=== PATIENT | female | born 1950 | race Caucasian/White ===

== ENCOUNTER → 2016-05-12 | Outpatient (CLI) | payer BC ==
[2016-04-07 08:11] VITALS: BP 140/67
[2016-05-12 09:18] LABS: BASOPHILS # (AUTO) 0.1 X10^3/uL (0.0-0.1); BASOPHILS % (AUTO) 1.4 % (0.2-1.0); EOSINOPHILS # (AUTO) 1.1 x10^3/uL (0.0-0.2); EOSINOPHILS % (AUTO) 13.7 % (0.9-2.9); LYMPHOCYTES # (AUTO) 3.1 X10^3/uL (1.3-2.9); LYMPHOCYTES % (AUTO) 39.5 % (21.0-51.0); MEAN CORPUSCULAR HEMOGLOBIN 31.6 pg (27.0-34.0); MEAN CORPUSCULAR HGB CONC 33.2 g/dL (33.0-35.0); MEAN CORPUSCULAR VOLUME 95.2 fL (80.0-100.0); MEAN PLATELET VOLUME 8.2 fL (7.4-11.0); MONOCYTES # (AUTO) 0.4 x10^3/uL (0.3-0.8); MONOCYTES % (AUTO) 5.4 % (0.0-13.0); NEUTROPHILS # (AUTO) 3.2 x10^3/uL (2.2-4.8); PLATELET COUNT 279 X10^3/uL (150.0-450.0); RED BLOOD COUNT 4.42 X10^6/uL (3.5-5.4); RED CELL DISTRIBUTION WIDTH 14.9 % (11.6-16.5); WHITE BLOOD COUNT 7.9 X10^3/uL (3.6-10.0)
[2016-05-12 09:54] LABS: ALANINE AMINOTRANSFERASE 57 Units/L (12-78); ALBUMIN 3.2 g/dL (3.4-5.0); ALKALINE PHOSPHATASE 139 Units/L (46-116); ASPARTATE AMINO TRANSFERASE 33 Units/L (15-37); BILIRUBIN,DIRECT 0.07 mg/dL (0-0.2); BLOOD UREA NITROGEN 8 mg/dL (7-18); CALCIUM 8.9 mg/dL (8.5-10.1); CARBON DIOXIDE 20.4 mmol/L (21-32); CHLORIDE 110 mmol/L (98-107); CHOL/HDL RATIO 3.5 (0.0-5.0); CHOLESTEROL 189 mg/dL (0-200); CREATININE 0.76 mg/dL (0.55-1.02); GLUCOSE 93 mg/dL (65-99); HDL CHOLESTEROL 54 mg/dL (40-60); SODIUM 144 mmol/L (136-145); TOTAL PROTEIN 7.4 g/dL (6.4-8.2); TRIGLYCERIDES 75 mg/dL (0-150); eGFR BLACK RACES > 60 (>60); eGFR NON BLACK RACES > 60 (>60)
== END ==
LOC: LAB 08:45
PROVIDERS: ATTEND Physician Assistant
DX: I10 Essential (primary) hypertension (principal); Z82.49 Family history of ischemic heart disease and other diseases of the circulatory system; Z79.01 Long term (current) use of anticoagulants
CPT/HCPCS: 36415; 80048; 80061; 80076; 85025

== ENCOUNTER 2016-05-14 16:01 | Observation (INO) | payer BC ==
--- NOTE | 2016-05-14 16:20 | DR.CP ---
HPI - Time Seen Time seen: 16:10 - PCP Primary Care Physician: - HPI Comment HPI Comment: PATIENT DEVELOP INTERMITTENT PRECORDIAL PRESSURE YESTERDAY THAT IS PERSISTENT TODAY. PAIN RADIATES TO THE BACK AND IS ASSOCIATED WITH SOB AND WEAKNESS.PATIENT DID NOT TAKE ANY MEDICATION FOR THE PAIN. SHE IS TO BE SCHEDULE FOR CARDIAC CATH NEXT WEEK BY DR. BONNER. SHE RECENTLY WAS TREATED FOR PNEUMONIA. SHE HAVE HISTORY OF HYPERTENTION AND HYPERLIPIDEMIA. ALSO STRONG FAMILY HISTORY OF CAD AND ND. - Complaint Chief Complaint Doctor Comments: CHEST PAIN TIMES 2 DAYS. Chief Complaint:: PATIENT STATED THAT SHE HAS BEEN HAVING CHEST PAIN FOR THE LAST 2 DAYS. SHE STATED THAT SHE WAS TO HAVE A HEART CATH THIS WEEK BUT IT WAS CHANGED TO NEXT WEEK. SHE SEES DR. MIRAMONTES. - Reviewed Nurses Notes Review: Yes - Source History Provided: Patient - Mode of Arrival Mode of Arrival: Ambulatory - Timing Onset of Chief Complaint: 05/12/16 Came on: Suddenly Pain: Present Now - Duration Duration: Intermittent Duration: Days - Location Location of Chest Pain: Left, Chest Chest Pain Radiation Location: Back - Context Onset: At rest, With light exertion Cardiac Risk Factors: Family History, Hyperlipidemia, HTN PE Risk Factors: None History of: Aspirin in last 24 hours Prehospital Care: ASA - Quality Quality: Pressure like - Severity Severity: Moderate - Modifying Factors Worsens: Nothing Impoves: Nothing - Associated Signs and Symptoms Associated Signs and Symptoms: Shortness of Breath, Palpitations (HISTORY A FIB) PMH - PMH Past Medical History: Yes Past Medical History: Dyslipidemia, GERD, Headaches, Migraines Past Surgical History: Yes Surgical History: Cholecystectomy, Hysterectomy - Family History History of Family Medical Conditions: Yes Family Medical History: Diabetes Mellitus, [place], Coronary Artery Disease, Heart Failure, Sudden Cardiac , Hypertension - Social History Does patient currently use any type of tobacco product: No Have you used tobacco products in the last 12 months: No Type of Tobacco Use: None Does any household member use tobacco: No Alcohol Use: None Do you use any recreational Drugs:: No Lives With: Family Lives Where: Home - infectious screening In the last 2 months have you had wt loss of >10#?: NO Have you had fever, night sweats or hemotysis?: No Have you traveled outside the country in the last 6 months?: No Isolation: Standard ROS - Review of Systems Constitutional: Weakness, Fatigue. negative: Chills, Diaphoresis, Fever, Loss of Appetite Eyes: No Symptoms Reported. negative: Eye Pain, Discharge ENTM: No Symptoms Reported. negative: Ear Pain, Nose Discharge, Nose Congestion , Throat Pain Respiratoy: Short of Breath. negative: Productive Cough, Non-Productive Cough, Wheezing, Hemoptysis Cardiovascular: Chest Pain, Palpitations. negative: Edema, Syncope Gastrointestinal/Abdominal: No Symptoms Reported. negative: Abdominal Pain, Diarrhea, Nausea, Vomiting Genitourinary: No Symptoms Reported. negative: Dysuria, Frequency, Hematuria Neurological: Weakness. negative: Headache, Dizziness Musculoskeletal: No Symptoms Reported Integumentary: No Symptoms Reported Hematologic/Lymphatic: Easy Bleeding, Easy Bruising Endocrine: No Symptoms Reported All Other Systems: Reviewed and Negative PE - Vitals Vitals: Temperature 97.3 F Pulse Rate 115 Respiratory Rate 20 Blood Pressure [Right Arm] 140/67 Blood Pressure [Left Arm] 140/73 Blood Pressure 138/84 O2 Sat by Pulse Oximetry 97 - General Limitations: No Limitations General Appearance: Alert - Head Head Exam: Normal Inspection - Eyes Eye exam: Normal Appearance - ENT ENT Exam: Normal Oropharynx, Normal External Ear Exam, Mucous Membranes Moist, TM's Normal Bilaterally - Chest Chest Inspection: Symmetric Chest Wall Rise. negative: Tenderness - Respiratory Respiratory Exam: Normal Lung Sounds Bilat. negative: Chest Wall Tenderness, Respiratory Distress Respiratory Exam: Bilateral Clear to Auscultation - Cardiovascular Cardiovascular Exam: Regular Rate, Normal Rhythm, Normal Heart Sounds Pulse: Normal Edema: Normal - Abdominal Exam Abdominal Exam: Normal Bowel Sounds, Soft. negative: Tenderness - Extremities Extremities Exam: Normal Inspection. negative: Tenderness, Edema - Back Back Exam: Normal Inspection - Neurologic Neurological Exam: Alert, Oriented X3, CN II-XII Intact, Normal Gait, Motor Sensory Deficit, Reflexes Normal - Psychiatric Psychiatric Exam: Anxious - Skin Skin Exam: Normal Color MDM - Additional Information Additional Information Obtained From: Family - Differential Diagnosis Differential Diagnosis: Angina, Chest Wall Pain, Costochondritis, Esophageal Reflux/Spasm, Gastritis, Myocardial Infarction, Pericarditis, Pleuritis, Pancreatitis, Pneumonia, Pneumothorax, Pulmonary Embolus Course - Treatment Treatment: ASA PO IN ED. - Consultation Consultation Comments: DISCUSS PATIENT WITH [employer] CAPTAIN. AFTER PATIENT RULE OUT FOR ND, SHE IS TO CALL THEIR OFFICE FOR FOLLOW UP. ALSO DISCUSS PATIENT WITH DR. LAU. HE WILL ADMIT PATIENT. - Education/Counseling Education/Counseling: Patient, Family, Education Educated On: Diagnosis ROR - Labs Reviewed Laboratory Results Reviewed?: Yes Result Diagrams: 05/14/16 16:44 05/14/16 16:44 Laboratory: WBC 9.8 X10^3/uL (3.6-10.0) 05/14/16 16:44 RBC 4.28 X10^6/uL (3.5-5.4) 05/14/16 16:44 Hgb 13.6 g/dL (12.0-16.0) 05/14/16 16:44 Hct 40.6 % (36.0-47.0) 05/14/16 16:44 MCV 94.8 fL (80.0-100.0) 05/14/16 16:44 MCH 31.7 pg (27.0-34.0) 05/14/16 16:44 MCHC 33.4 g/dL (33.0-35.0) 05/14/16 16:44 RDW 15.0 % (11.6-16.5) 05/14/16 16:44 Plt Count 285 X10^3/uL (150.0-450.0) 05/14/16 16:44 MPV 8.1 fL (7.4-11.0) 05/14/16 16:44 Neut % 50.7 % (42.0-75.0) 05/14/16 16:44 Lymph % 30.3 % (21.0-51.0) 05/14/16 16:44 [place] % 6.0 % (0.0-13.0) 05/14/16 16:44 Eos % 12.0 % (0.9-2.9) H 05/14/16 16:44 Baso % 1.0 % (0.2-1.0) 05/14/16 16:44 Neut # 5.0 x10^3/uL (2.2-4.8) H 05/14/16 16:44 Lymph # 3.0 X10^3/uL (1.3-2.9) H 05/14/16 16:44 [place] # 0.6 x10^3/uL (0.3-0.8) 05/14/16 16:44 Eos # 1.2 x10^3/uL (0.0-0.2) H 05/14/16 16:44 Baso # 0.1 X10^3/uL (0.0-0.1) 05/14/16 16:44 Absolute Nucleated RBC 0.0 /100WBC 05/14/16 16:44 Sodium 143 mmol/L (136-145) 05/14/16 16:44 Corrected Sodium 143 mmol/L (136-145) 05/14/16 16:44 Potassium 3.4 mmol/L (3.5-5.1) L 05/14/16 16:44 Chloride 109 mmol/L (98-107) H 05/14/16 16:44 Carbon Dioxide 22.6 mmol/L (21-32) 05/14/16 16:44 BUN 9 mg/dL (7-18) 05/14/16 16:44 Creatinine 0.76 mg/dL (0.55-1.02) 05/14/16 16:44 Est GFR (MDRD) Af Amer > 60 (>60) 05/14/16 16:44 Est GFR (MDRD) Non-Af > 60 (>60) 05/14/16 16:44 Glucose 112 mg/dL (65-99) H 05/14/16 16:44 Calcium 9.1 mg/dL (8.5-10.1) 05/14/16 16:44 Corrected Calcium 9.7 mg/dL (8.5-10.1) 05/14/16 16:44 Total Bilirubin 0.20 mg/dL (0.2-1.0) 05/14/16 16:44 AST 24 Units/L (15-37) 05/14/16 16:44 ALT 42 Units/L (12-78) 05/14/16 16:44 Alkaline Phosphatase 122 Units/L (46-116) H 05/14/16 16:44 Creatine Kinase 23 Units/L (26-192) L 05/14/16 23:10 CK-MB (CK-2) < 1.0 ng/mL (0-4.0) 05/14/16 23:10 CK/CKMB % Calc 4.4 % (<4) 05/14/16 23:10 Troponin I 0.02 ng/mL (0-1.5) 05/14/16 23:10 B-Natriuretic Peptide 56.0 pg/mL (0-79) 05/14/16 16:44 Total Protein 7.2 g/dL (6.4-8.2) 05/14/16 16:44 Albumin 3.3 g/dL (3.4-5.0) L 05/14/16 16:44 Globulin 3.9 g/dL (2.5-4.5) 05/14/16 16:44 Albumin/Globulin Ratio 0.8 Ratio (1.1-2.1) L 05/14/16 16:44 - XRAY XRAY Interpreted by: Radiologist XRAY Findings: REPORT DISCUSS WITH PATIENT AND HER FAMILY. - EKG Rhythm: ST (EKG NOTED) - Diagnosis Discharge Problem: Chest pain Qualifiers: Chest pain type: precordial pain Qualified Code(s): R07.2 - Precordial pain - Discharge Plan Disposition: ADMITTED INPATIENT Condition: Stable - Follow ups/Referrals - Instructions
[2016-05-14] MEDS ORDERED: ASPIRIN 81 MG CHEWTAB PO ONE (16:21)
[2016-05-14] MEDS ORDERED: ASPIRIN 81 MG CHEWTAB ONE (16:28)
--- NOTE | 2016-05-14 16:42 | RAD ---
HISTORY: Chest pain Study: Single view of the chest Comparison: April 07, 2016 Findings: The trachea is midline. The cardiac silhouette is unremarkable. The lungs are clear without focal infiltrate or effusion. The aortic knob is partially calcified. IMPRESSION: 1. No acute cardiopulmonary disease. Reported By:
[2016-05-14 16:55] LABS: BASOPHILS # (AUTO) 0.1 X10^3/uL (0.0-0.1); EOSINOPHILS # (AUTO) 1.2 x10^3/uL (0.0-0.2); HEMATOCRIT 40.6 % (36.0-47.0); HEMOGLOBIN 13.6 g/dL (12.0-16.0); LYMPHOCYTES % (AUTO) 30.3 % (21.0-51.0); MEAN CORPUSCULAR HEMOGLOBIN 31.7 pg (27.0-34.0); MEAN CORPUSCULAR HGB CONC 33.4 g/dL (33.0-35.0); MEAN CORPUSCULAR VOLUME 94.8 fL (80.0-100.0); MEAN PLATELET VOLUME 8.1 fL (7.4-11.0); MONOCYTES # (AUTO) 0.6 x10^3/uL (0.3-0.8); NEUTROPHILS % (AUTO) 50.7 % (42.0-75.0); PLATELET COUNT 285 X10^3/uL (150.0-450.0); RED BLOOD COUNT 4.28 X10^6/uL (3.5-5.4); WHITE BLOOD COUNT 9.8 X10^3/uL (3.6-10.0)
[2016-05-14 17:12] LABS: BLOOD UREA NITROGEN 9 mg/dL (7-18); CALCIUM 9.1 mg/dL (8.5-10.1); CARBON DIOXIDE 22.6 mmol/L (21-32); CHLORIDE 109 mmol/L (98-107); COR NA(FOR HYPERGLY) 143 mmol/L (136-145); CREATININE 0.76 mg/dL (0.55-1.02); GLUCOSE 112 mg/dL (65-99); SODIUM 143 mmol/L (136-145); TROPONIN I 0.03 ng/mL (0-1.5); eGFR BLACK RACES > 60 (>60); eGFR NON BLACK RACES > 60 (>60)
[2016-05-14 17:16] LABS: ALANINE AMINOTRANSFERASE 42 Units/L (12-78); ALBUMIN 3.3 g/dL (3.4-5.0); ALKALINE PHOSPHATASE 122 Units/L (46-116); ASPARTATE AMINO TRANSFERASE 24 Units/L (15-37); COR CA(FOR HYPOALB) 9.7 mg/dL (8.5-10.1); CREATINE KINASE 20 Units/L (26-192); CREATINE KINASE MB < 1.0 ng/mL (0-4.0); TOTAL PROTEIN 7.2 g/dL (6.4-8.2)
[2016-05-14] MEDS ORDERED: NORCO 10/325 TAB PO PRN (20:59)
[2016-05-14] MEDS ORDERED: ANTIVERT TAB 25 MG PO PRN (20:59)
[2016-05-14] MEDS: TOPAMAX TAB 100 MG PO SCH (21:00)
[2016-05-14] MEDS: NS 1000 ML 1,000 ML IV SCH (21:00)
[2016-05-14] MEDS: ZYRTEC TAB 10 MG PO SCH (21:00)
[2016-05-14 22:09] VITALS: BMI 26.7
[2016-05-14 23:46] LABS: CKMB % 4.4 % (<4); CREATINE KINASE 23 Units/L (26-192); CREATINE KINASE MB < 1.0 ng/mL (0-4.0); TROPONIN I 0.02 ng/mL (0-1.5)
[2016-05-15 05:39] LABS: ALANINE AMINOTRANSFERASE 32 Units/L (12-78); ALBUMIN 2.9 g/dL (3.4-5.0); ALKALINE PHOSPHATASE 104 Units/L (46-116); ASPARTATE AMINO TRANSFERASE 22 Units/L (15-37); BLOOD UREA NITROGEN 8 mg/dL (7-18); CALCIUM 8.4 mg/dL (8.5-10.1); CARBON DIOXIDE 21.6 mmol/L (21-32); CHLORIDE 111 mmol/L (98-107); CHOL/HDL RATIO 3.8 (0.0-5.0); CHOLESTEROL 177 mg/dL (0-200); COR CA(FOR HYPOALB) 9.3 mg/dL (8.5-10.1); CREATININE 0.73 mg/dL (0.55-1.02); GLUCOSE 91 mg/dL (65-99); HDL CHOLESTEROL 46 mg/dL (40-60); SODIUM 144 mmol/L (136-145); TOTAL PROTEIN 6.4 g/dL (6.4-8.2); TRIGLYCERIDES 65 mg/dL (0-150); eGFR BLACK RACES > 60 (>60); eGFR NON BLACK RACES > 60 (>60)
[2016-05-15 05:48] LABS: BASOPHILS # (AUTO) 0.1 X10^3/uL (0.0-0.1); EOSINOPHILS # (AUTO) 1.5 x10^3/uL (0.0-0.2); EOSINOPHILS % (AUTO) 17.1 % (0.9-2.9); HEMATOCRIT 38.9 % (36.0-47.0); LYMPHOCYTES # (AUTO) 2.7 X10^3/uL (1.3-2.9); LYMPHOCYTES % (AUTO) 30.6 % (21.0-51.0); MEAN CORPUSCULAR HEMOGLOBIN 31.8 pg (27.0-34.0); MEAN CORPUSCULAR HGB CONC 33.6 g/dL (33.0-35.0); MEAN CORPUSCULAR VOLUME 94.7 fL (80.0-100.0); MEAN PLATELET VOLUME 8.4 fL (7.4-11.0); MONOCYTES # (AUTO) 0.5 x10^3/uL (0.3-0.8); MONOCYTES % (AUTO) 5.6 % (0.0-13.0); NEUTROPHILS % (AUTO) 45.7 % (42.0-75.0); PLATELET COUNT 247 X10^3/uL (150.0-450.0); RED BLOOD COUNT 4.11 X10^6/uL (3.5-5.4); RED CELL DISTRIBUTION WIDTH 14.6 % (11.6-16.5); WHITE BLOOD COUNT 8.8 X10^3/uL (3.6-10.0)
[2016-05-15 05:54] LABS: CREATINE KINASE 20 Units/L (26-192); CREATINE KINASE MB < 1.0 ng/mL (0-4.0); TROPONIN I 0.02 ng/mL (0-1.5)
[2016-05-15] MEDS ORDERED: SINGULAIR TAB 10 MG PO SCH (09:00)
[2016-05-15] MEDS ORDERED: PRILOSEC PO SCH (09:00)
[2016-05-15] MEDS ORDERED: NORVASC TAB 2.5 MG PO SCH (09:00)
[2016-05-15] MEDS: TOPROL XL PO SCH (09:18)
[2016-05-15] MEDS: TOPAMAX TAB 100 MG PO SCH ×2 (09:18→20:22)
[2016-05-15] MEDS: COZAAR PO SCH (09:18)
[2016-05-15] MEDS: ASPIRIN EC 81 MG PO SCH (09:18)
[2016-05-15 12:59] LABS: CKMB % 3.9 % (<4); CREATINE KINASE 26 Units/L (26-192); CREATINE KINASE MB < 1.0 ng/mL (0-4.0); TROPONIN I 0.02 ng/mL (0-1.5)
[2016-05-15] MEDS ORDERED: VISTARIL PO PRN (17:34)
[2016-05-15 18:11] LABS: CKMB % 4.6 % (<4); CREATINE KINASE 22 Units/L (26-192); CREATINE KINASE MB < 1.0 ng/mL (0-4.0); TROPONIN I 0.03 ng/mL (0-1.5)
--- NOTE | 2016-05-15 18:40 | DR.CARTERS ---
Short Stay Summary - Short Stay Summary for: Short Stay Summary for Date of:: 05/15/16 - Admission Date Date of Admission: 05/14/16 - Discharge Date Discharge Date: 05/15/16 - Discharge Medications Discharge Medications: Hydrocodone-Acet 10/325 mg [NORCO 10 MG/325 MG *] 1 ea PO TID PRN 05/14/16 [ History] Meclizine HCl [Meclizine 25] 25 mg PO TID PRN 05/14/16 [History] Metoprolol Succinate Ext Rel [TOPROL XL 50 MG *] 50 mg PO DAILY 05/14/16 [ History] Omeprazole [Omeprazole] 20 mg PO DAILY 05/14/16 [History] - Discharge Plan Disposition: 01 HOME, SELF-CARE Condition: Stable - Follow up/Referrals Follow up/Referrals: Karl Curtis [Primary Care Provider] - 3 days - Instructions
--- NOTE | 2016-05-15 19:14 | DR.H&P ---
H&P - History & Physical for Day of: H&P Date: 05/14/16 - Chief Complaint Chief Complaint: cp - Allergies Allergies/Adverse Reactions: Allergies Allergy/AdvReac Type Severity Reaction Status Date / Time Morphine Allergy Unknown Verified 05/07/12 11:33 Penicillins Allergy Unknown Verified 05/07/12 11:33 Sulfa Drugs Allergy Unknown Verified 05/07/12 11:33 - History of Present Illness History of Present Illness: 65 WF ADMIT FROM ER AFTER PRESENTING WITH CO CP. PT HAS HX HTN AND FAMILY HX OC CAD. PT HAS SEEN DR MIRAMONTES AND SCHEDULED FOR OP HEART CATH NEXT WEEK. PT CO INCREASED CP WITHOUT EXERTION. PT DENIES N/V. PT STATES PAIN INCREASES WITH EXERTION. PLAN TO ADMIT FOR SERIAL CARDIAC MONITORING AND SERIAL EKGS, BP AND LIPID CONTROL - Past Medical History Past Medical History: Dyslipidemia, GERD, Headaches, Migraines - Past Surgical History Surgical History: Cholecystectomy, Hysterectomy - Family History Family Medical History: Diabetes Mellitus, [place], Coronary Artery Disease, Heart Failure, Sudden Cardiac , Hypertension - Social History Does patient currently use any type of tobacco product: No Have you used tobacco products in the last 12 months: No Type of Tobacco Use: None Does any household member use tobacco: No Alcohol Use: None Drug Use: None - Medications Home Medications: Hydrocodone-Acet 10/325 mg [NORCO 10 MG/325 MG *] 1 ea PO TID PRN 05/14/16 [ History Confirmed 05/14/16] Meclizine HCl [Meclizine 25] 25 mg PO TID PRN 05/14/16 [History Confirmed ] Metoprolol Succinate Ext Rel [TOPROL XL 50 MG *] 50 mg PO DAILY 05/14/16 [ History Confirmed 05/14/16] Omeprazole [Omeprazole] 20 mg PO DAILY 05/14/16 [History Confirmed 05/14/16] - Review of Systems Constitutional: No Symptoms Reported Eyes: No Symptoms Reported ENT: No Symptoms Reported Respiratory: Shortness of Breath (MILD ON EXERTION) Cardiovascular: Chest Pain Gastrointestinal: No Symptoms Reported Genitourinary: No Symptoms Reported Musculoskeletal: No Symptoms Reported Neurological: No Symptoms Reported - Physical Exam Vital Signs: Temperature 97.7 F Pulse Rate [Right Brachial] 70 Respiratory Rate 18 Blood Pressure [Right Arm] 125/68 O2 Sat by Pulse Oximetry 96 Oriented: Normal Eyes: Normal Ear: Normal Nose: Normal Throat: Normal Respiratory: Clear Throughout Cardiovascular: Normal : Normal Auscultation: Bowel Sounds: Normal Palpation: Normal Tenderness: Normal Skin: Normal Musculoskeletal: Normal Psychiatric: Anxiety Speech Pattern: Clear, Appropriate - Assessment/Plan (1) Chest pain Qualifiers: Chest pain type: precordial pain Ischemic chest pain type: I Qualified Code(s): R07.2 - Precordial pain Status: Acute Plan: ADMIT, SERIAL EKG'S CARDIAC MONITORING, SERIAL CE'S. BP AND LIPID CONTROL (2) CAD (coronary artery disease) Qualifiers: Coronary Disease-Associated Artery/Lesion type: C [place] vs. transplanted heart: N Associated angina: A Status: Chronic (3) GERD (gastroesophageal reflux disease) Qualifiers: Esophagitis presence: esophagitis presence not specified Qualified Code(s) : K21.9 - Gastro-esophageal reflux disease without esophagitis Status: Chronic (4) Hyperlipidemia Qualifiers: Hyperlipidemia type: mixed hyperlipidemia Qualified Code(s): E78.2 - Mixed hyperlipidemia Status: Chronic (5) Hypertension Qualifiers: Hypertension type: essential hypertension Qualified Code(s): I10 - Essential (primary) hypertension Status: Chronic
[2016-05-15] MEDS: NS 1000 ML 1,000 ML IV SCH ×2 (19:16→22:02)
--- NOTE | 2016-05-15 19:18 | PCM.PROG ---
Progress Note - Progress Note for Day of Date: 05/15/16 - Subjective Subjective: PT CONTINUES TO CO CHEST PAIN AT REST, PAIN IN SUBSTERNAL AND INTERMITTENT - Past Medical Family Social History Past Med/Fam/Surg Hx: No changes since H&P Allergies: Allergies Morphine Allergy (Unknown, Verified 05/07/12 11:33) Penicillins Allergy (Unknown, Verified 05/07/12 11:33) Sulfa Drugs Allergy (Unknown, Verified 05/07/12 11:33) - Review of Systems ROS: No change since H&P - Vital Signs and I&O's Vital Signs: Temperature 97.7 F Pulse Rate [Right Brachial] 70 Respiratory Rate 18 Blood Pressure [Right Arm] 125/68 O2 Sat by Pulse Oximetry 96 Intake and Output: Intake & Output 05/13/16 05/14/16 05/15/16 05/16/16 11:59 11:59 11:59 11:59 Intake Total 285 760 Output Total 3 Balance 282 760 - Physical Exam Oriented: Normal Eyes: Normal Ear: Normal Nose: Normal Throat: Normal Respiratory: Normal Cardiovascular: Normal : Normal Auscultation: Bowel Sounds: Normal Tenderness: Normal Skin: Normal Musculoskeletal: Normal Psychiatric: Anxiety Speech Pattern: Clear, Appropriate - Laboratory and Diagnostics Result Diagrams: 05/15/16 04:55 05/15/16 04:55 Labs: Laboratory WBC 8.8 X10^3/uL (3.6-10.0) 05/15/16 04:55 RBC 4.11 X10^6/uL (3.5-5.4) 05/15/16 04:55 Hgb 13.0 g/dL (12.0-16.0) 05/15/16 04:55 Hct 38.9 % (36.0-47.0) 05/15/16 04:55 MCV 94.7 fL (80.0-100.0) 05/15/16 04:55 MCH 31.8 pg (27.0-34.0) 05/15/16 04:55 MCHC 33.6 g/dL (33.0-35.0) 05/15/16 04:55 RDW 14.6 % (11.6-16.5) 05/15/16 04:55 Plt Count 247 X10^3/uL (150.0-450.0) 05/15/16 04:55 MPV 8.4 fL (7.4-11.0) 05/15/16 04:55 Neut % 45.7 % (42.0-75.0) 05/15/16 04:55 Lymph % 30.6 % (21.0-51.0) 05/15/16 04:55 [place] % 5.6 % (0.0-13.0) 05/15/16 04:55 Eos % 17.1 % (0.9-2.9) H 05/15/16 04:55 Baso % 1.0 % (0.2-1.0) 05/15/16 04:55 Neut # 4.0 x10^3/uL (2.2-4.8) 05/15/16 04:55 Lymph # 2.7 X10^3/uL (1.3-2.9) 05/15/16 04:55 [place] # 0.5 x10^3/uL (0.3-0.8) 05/15/16 04:55 Eos # 1.5 x10^3/uL (0.0-0.2) H 05/15/16 04:55 Baso # 0.1 X10^3/uL (0.0-0.1) 05/15/16 04:55 Absolute Nucleated RBC 0.2 /100WBC 05/15/16 04:55 Sodium 144 mmol/L (136-145) 05/15/16 04:55 Corrected Sodium TNP 05/15/16 04:55 Potassium 3.4 mmol/L (3.5-5.1) L 05/15/16 04:55 Chloride 111 mmol/L (98-107) H 05/15/16 04:55 Carbon Dioxide 21.6 mmol/L (21-32) 05/15/16 04:55 BUN 8 mg/dL (7-18) 05/15/16 04:55 Creatinine 0.73 mg/dL (0.55-1.02) 05/15/16 04:55 Est GFR (MDRD) Af Amer > 60 (>60) 05/15/16 04:55 Est GFR (MDRD) Non-Af > 60 (>60) 05/15/16 04:55 Glucose 91 mg/dL (65-99) 05/15/16 04:55 Calcium 8.4 mg/dL (8.5-10.1) L 05/15/16 04:55 Corrected Calcium 9.3 mg/dL (8.5-10.1) 05/15/16 04:55 Total Bilirubin 0.30 mg/dL (0.2-1.0) 05/15/16 04:55 AST 22 Units/L (15-37) 05/15/16 04:55 ALT 32 Units/L (12-78) 05/15/16 04:55 Alkaline Phosphatase 104 Units/L (46-116) 05/15/16 04:55 Creatine Kinase 22 Units/L (26-192) L 05/15/16 17:35 CK-MB (CK-2) < 1.0 ng/mL (0-4.0) 05/15/16 17:35 CK/CKMB % Calc 4.6 % (<4) 05/15/16 17:35 Troponin I 0.03 ng/mL (0-1.5) 05/15/16 17:35 B-Natriuretic Peptide 56.0 pg/mL (0-79) 05/14/16 16:44 Total Protein 6.4 g/dL (6.4-8.2) 05/15/16 04:55 Albumin 2.9 g/dL (3.4-5.0) L 05/15/16 04:55 Globulin 3.5 g/dL (2.5-4.5) 05/15/16 04:55 Albumin/Globulin Ratio 0.8 Ratio (1.1-2.1) L 05/15/16 04:55 Triglycerides 65 mg/dL (0-150) 05/15/16 04:55 Cholesterol 177 mg/dL (0-200) 05/15/16 04:55 LDL Cholesterol, Calc 118 mg/dL (0-100) H 05/15/16 04:55 HDL Cholesterol 46 mg/dL (40-60) 05/15/16 04:55 Cholesterol/HDL Ratio 3.8 (0.0-5.0) 05/15/16 04:55 - Plan (1) Chest pain Status: Acute Qualifiers: Chest pain type: precordial pain Ischemic chest pain type: I Qualified Code(s): R07.2 - Precordial pain Plan: SERIAL EKG'S AND CE'S STABLE, PT CO CHEST PAIN. WILL CONTACT DR MIRAMONTES, [facility] TO DISCUSSED TRANSFER FOR CARDIAC CATH. BP AND LIPID CONTROL (2) CAD (coronary artery disease) Status: Chronic Qualifiers: Coronary Disease-Associated Artery/Lesion type: C [place] vs. transplanted heart: N Associated angina: A (3) GERD (gastroesophageal reflux disease) Status: Chronic Qualifiers: Esophagitis presence: esophagitis presence not specified Qualified Code(s) : K21.9 - Gastro-esophageal reflux disease without esophagitis (4) Hyperlipidemia Status: Chronic Qualifiers: Hyperlipidemia type: mixed hyperlipidemia Qualified Code(s): E78.2 - Mixed hyperlipidemia (5) Hypertension Status: Chronic Qualifiers: Hypertension type: essential hypertension Qualified Code(s): I10 - Essential (primary) hypertension
[2016-05-15] MEDS ORDERED: XANAX PO PRN (19:19)
[2016-05-15] MEDS: ZYRTEC TAB 10 MG PO SCH (20:22)
[2016-05-15 23:56] LABS: CKMB % 5.3 % (<4); CREATINE KINASE 19 Units/L (26-192); CREATINE KINASE MB < 1.0 ng/mL (0-4.0); TROPONIN I 0.02 ng/mL (0-1.5)
[2016-05-16] MEDS ORDERED: K-DUR TAB 20 MEQ PO PRN (08:10)
[2016-05-16] MEDS ORDERED: POTASSIUM CHLORIDE LIQ 20 MEQ UDC PO PRN (08:10)
[2016-05-16] MEDS ORDERED: K-RIDER 10 MEQ/NS 100 ML 10 MEQ/100 ML BAG IV PRN (08:10)
[2016-05-16] MEDS ORDERED: K-LYTE EFFERVESCENT PO PRN (08:10)
[2016-05-16] MEDS: COZAAR PO SCH (08:25)
[2016-05-16] MEDS: ASPIRIN EC 81 MG PO SCH (08:25)
[2016-05-16] MEDS: TOPROL XL PO SCH (08:25)
[2016-05-16 09:12] VITALS: BP 121/69
== END 2016-05-16 08:44 | disposition home or self-care (01) ==
LOC: ER 16:05 → MED/SURG 19:49
PROVIDERS: ADMIT Internal Medicine; ATTEND Internal Medicine
DX: R07.89 Other chest pain (principal); R94.31 Abnormal electrocardiogram [ECG] [EKG]; R06.02 Shortness of breath; R53.1 Weakness; I10 Essential (primary) hypertension; E78.2 Mixed hyperlipidemia; R07.2 Precordial pain; I25.10 Atherosclerotic heart disease of native coronary artery without angina pectoris; K21.9 Gastro-esophageal reflux disease without esophagitis
CPT/HCPCS: 36415; 71010; 80053; 80061; 82550; 82553; 83880; 84484; 85025; 93005; 94760; 96365; 99284; A4216; A4222; Q0177; G0378

== ENCOUNTER 2016-07-10 09:15 | Day surgery (SDC) | payer BC ==
[2016-07-10] MEDS ORDERED: D5 LR 1000 ML 1,000 ML IV ONE (09:20)
[2016-07-10] MEDS ORDERED: DIPRIVAN VIAL 20 ML ONE (10:34)
[2016-07-10] MEDS ORDERED: ZOFRAN INJ 4 MG VIAL ONE (11:03)
[2016-07-10 13:42] VITALS: BP 138/76
== END 2016-07-10 11:15 | disposition home or self-care (01) ==
LOC: SURG1 09:15
PROVIDERS: ATTEND Internal Medicine Gastroenterology
PROC: 0DB68ZX Excision of Stomach, Via Natural or Artificial Opening Endoscopic, Diagnostic (ICD-10-PCS; principal; 2016-07-10 11:30)
PROC: 0DB88ZX Excision of Small Intestine, Via Natural or Artificial Opening Endoscopic, Diagnostic (ICD-10-PCS; principal; 2016-07-10 11:30)
PROC: 0DJ08ZZ Inspection of Upper Intestinal Tract, Via Natural or Artificial Opening Endoscopic (ICD-10-PCS; principal; 2016-07-10 11:30)
PROC: 0D757ZZ Dilation of Esophagus, Via Natural or Artificial Opening (ICD-10-PCS; principal; 2016-07-10 11:30)
DX: R13.19 Other dysphagia (principal); R10.13 Epigastric pain; K21.9 Gastro-esophageal reflux disease without esophagitis; R07.89 Other chest pain; K22.4 Dyskinesia of esophagus; K22.2 Esophageal obstruction; K29.60 Other gastritis without bleeding
CPT/HCPCS: A4217; J2405; J3490; J7120

== ENCOUNTER 2024-08-02 14:30 | Observation (INO) ==
[2024-08-02] MEDS ORDERED: PROVENTIL NEB TX 0.083% 2.5MG/ 3ML NEB PRN (15:20)
[2024-08-02] MEDS ORDERED: NS 1,000 ML IV 1,000 ML ONE (16:05)
--- NOTE | 2024-08-02 16:21 | EKG ---
Test Reason : syncope Blood Pressure : */* mmHG Vent. Rate : 78 BPM Atrial Rate : 78 BPM P-R Int : 202 ms QRS Dur : 88 ms QT Int : 426 ms P-R-T Axes : 55 -46 43 degrees QTc Int : 485 ms Normal sinus rhythm Left anterior fascicular block Moderate voltage criteria for LVH, may be normal variant ( R in aVL , Bryan product ) Nonspecific T wave abnormality Abnormal ECG When compared with ECG of 17-MAR-2024 11:07, Criteria for Septal infarct are no longer present Confirmed by Boubacar Stanley MD ([id number]) on 08/03/2024 7:27:31 AM Referred By: Confirmed By: Boubacar Stanley MD
[2024-08-02 16:43] LABS: BASOPHILS # (AUTO) 0.1 X10^3/uL (0.0-0.1); BASOPHILS % (AUTO) 0.7 % (0.2-1.0); EOSINOPHILS # (AUTO) 0.3 x10^3/uL (0.0-0.2); EOSINOPHILS % (AUTO) 2.4 % (0.9-2.9); HEMATOCRIT 40.5 % (36.0-47.0); HEMOGLOBIN 13.5 g/dL (12.0-16.0); LYMPHOCYTES # (AUTO) 3.4 X10^3/uL (1.3-2.9); LYMPHOCYTES % (AUTO) 23.6 % (21.0-51.0); MEAN CORPUSCULAR HEMOGLOBIN 33.1 pg (27.0-34.0); MEAN CORPUSCULAR HGB CONC 33.4 g/dL (33.0-35.0); MEAN CORPUSCULAR VOLUME 98.9 fL (80.0-100.0); MEAN PLATELET VOLUME 7.5 fL (7.4-11.0); NEUTROPHILS # (AUTO) 9.4 x10^3/uL (2.2-4.8); NEUTROPHILS % (AUTO) 66.3 % (42.0-75.0); PLATELET COUNT 361 X10^3/uL (150.0-450.0); RED BLOOD COUNT 4.09 X10^6/uL (3.5-5.4); RED CELL DISTRIBUTION WIDTH 14.8 % (11.6-16.5); WHITE BLOOD COUNT 14.2 X10^3/uL (3.6-10.0)
[2024-08-02 16:59] LABS: ALANINE AMINOTRANSFERASE 43 Units/L (12-78); ALKALINE PHOSPHATASE 198 Units/L (46-116); ASPARTATE AMINO TRANSFERASE 47 Units/L (15-37); BLOOD UREA NITROGEN 8 mg/dL (7-18); CARBON DIOXIDE 28.1 mmol/L (21-32); CHLORIDE 104 mmol/L (98-107); COR CA(FOR HYPOALB) 9.8 mg/dL (8.5-10.1); CREATININE 1.02 mg/dL (0.55-1.02); GLUCOSE 69 mg/dL (65-99); POTASSIUM 3.6 mmol/L (3.5-5.1); SODIUM 140 mmol/L (136-145); eGFR NON BLACK RACES 57 (>60)
[2024-08-02] MEDS: NS 1,000 ML IV 1,000 ML IV SCH (17:30)
[2024-08-02 17:42] VITALS: BMI 29.1
[2024-08-02 18:07] LABS: AMYLASE 19 Units/L (25-115); LIPASE 11 Units/L (16-77)
--- NOTE | 2024-08-02 18:11 | DR.H&P ---
H&P History & Physical for Day of: H&P Date: 08/02/24 Chief Complaint Chief Complaint: SOB, NAUSEA AND VOMITING, LEFT SIDE WEAKNESS History of Present Illness History of Present Illness: PT IS 74 WF, DIRECT ADMIT FROM DR LAU OFFICE WITH CO NAUSEA AND VOMITING. PT CO FEELING WEAK AND DEHYDRATED WITH INCREASE LEFT SIDE WEAKNESS, WORSE X 1 DAY. PT CO GIVES OUT EASY DUE TO SHORTNESS OF BREATH, PT WAS HYPERVENTILATING IN THE OFFICE. 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 PT HAS PMH OF CVA, AFIB ON ELIQUIS AND METOPROLOL FOR RATE CONTROL, CAD WITH LAST CATH ~ 3 MOS AGO AT [facility] [place]. PT CO ABDOMINAL BLOATING AND EXTREME FATIGUE SINCE SHE HAS COVID IN JUNE. PT ADMITTED FOR TREATMENT AND EVALUATION OF ACUTE ILLNESS. Past Medical History Past Medical History: CVA, Dyslipidemia, Migraines, GERD, Headaches and Hypertension Past Surgical History Surgical History: Cholecystectomy, PLATE CORRECTOR Surgery and Hysterectomy Family History Family Medical History: Coronary Artery Disease and Hypertension Social History Alcohol Use: None Drug Use: None Medications Home Medications: Home Medications Medication Instructions Recorded Confirmed Type Omeprazole 20 mg PO DAILY 05/14/1607/11 History meclizine 25 mg tablet 25 mg PO TID PRN 05/14/16 History metoprolol succinate 50 mg 50 mg PO DAILY 05/14/16 History tablet,extended release 24 hr apixaban 5 mg tablet (Eliquis) 5 mg PO BID 03/17/24 History atorvastatin 80 mg tablet 80 mg PO QDAY 03/17/2408/02 History hydrocodone 7.5 mg-acetaminophen 1 - 1.5 tab PO Q6H MA N 03/17/24 08/02/24 History 325 mg tablet losartan 100 mg tablet 100 mg PO QDAY 03/17/2407/11 History venlafaxine 75 mg capsule,extended 75 mg PO QDAY 03/1708/02/24 History release 24 hr albuterol sulfate 90 mcg/actuation 2 puff inhalation Q 4-6H PRN 08/02/24 08/02/24 History aerosol inhaler apixaban 5 mg tablet (Eliquis) 5 mg PO BID 08/02/24 History dicyclomine 20 mg tablet 20 mg PO DAILY 08/02/2407/11 History estradiol 0.5 mg tablet 0.5 mg PO QDAY 08/02/2407/11 History furosemide 20 mg tablet 20 mg PO QDAY swelling 08/0208/02/24 History ondansetron 4 mg disintegrating 4 mg PO TID PRN 08/02/24 History tablet potassium chloride 10 mEq 10 meq PO QDAY 08/02/2407/11 History capsule,extended release Allergies Allergies Allergy/AdvReac Type Severity Reaction Status Date / Time morphine Allergy Verified 09/12/22 10:08 Penicillins Allergy Verified 09/12/22 10:08 Sulfa (Sulfonamide Allergy Verified 09/12/22 10:08 Antibiotics) (SULFA) Labs 08/02/24 16:30 08/02/24 16:30 Labs: Laboratory WBC 14.2 X10^3/uL (3.6-10.0) H 08/02/24 16:30 RBC 4.09 X10^6/uL (3.5-5.4) 08/02/24 16:30 Hgb 13.5 g/dL (12.0-16.0) 08/02/24 16:30 Hct 40.5 % (36.0-47.0) 08/02/24 16:30 MCV 98.9 fL (80.0-100.0) 08/02/24 16:30 MCH 33.1 pg (27.0-34.0) 08/02/24 16:30 MCHC 33.4 g/dL (33.0-35.0) 08/02/24 16:30 RDW 14.8 % (11.6-16.5) 08/02/24 16:30 Plt Count 361 X10^3/uL (150.0-450.0) 08/02/24 16:30 MPV 7.5 fL (7.4-11.0) 08/02/24 16:30 Neut % (Auto) 66.3 % (42.0-75.0) 08/02/24 16:30 Lymph % (Auto) 23.6 % (21.0-51.0) 08/02/24 16:30 [place] % (Auto) 7.0 % (0.0-13.0) 08/02/24 16:30 Eos % (Auto) 2.4 % (0.9-2.9) 08/02/24 16:30 Baso % (Auto) 0.7 % (0.2-1.0) 08/02/24 16:30 Neut # (Auto) 9.4 x10^3/uL (2.2-4.8) H 08/02/24 16:30 Lymph # (Auto) 3.4 X10^3/uL (1.3-2.9) H 08/02/24 16:30 [place] # (Auto) 1.0 x10^3/uL (0.3-0.8) H 08/02/24 16:30 Eos # (Auto) 0.3 x10^3/uL (0.0-0.2) H 08/02/24 16:30 Baso # (Auto) 0.1 X10^3/uL (0.0-0.1) 08/02/24 16:30 Absolute Nucleated RBC 0.0 /100WBC 08/02/24 16:30 D-Dimer < 0.27 ug/ml (0.0-0.57) 08/02/24 16:30 Sodium 140 mmol/L (136-145) 08/02/24 16:30 Corrected Sodium TNP 08/02/24 16:30 Potassium 3.6 mmol/L (3.5-5.1) 08/02/24 16:30 Chloride 104 mmol/L (98-107) 08/02/24 16:30 Carbon Dioxide 28.1 mmol/L (21-32) 08/02/24 16:30 BUN 8 mg/dL (7-18) 08/02/24 16:30 Creatinine 1.02 mg/dL (0.55-1.02) 08/02/24 16:30 Est GFR (MDRD) Af Amer > 60 (>60) 08/02/24 16:30 Est GFR (MDRD) Non-Af 57 (>60) L 08/02/24 16:30 Glucose 69 mg/dL (65-99) 08/02/24 16:30 Calcium 9.0 mg/dL (8.5-10.1) 08/02/24 16:30 Corrected Calcium 9.8 mg/dL (8.5-10.1) 08/02/24 16:30 Total Bilirubin 0.50 mg/dL (0.2-1.0) 08/02/24 16:30 AST 47 Units/L (15-37) H 08/02/24 16:30 ALT 43 Units/L (12-78) 08/02/24 16:30 Alkaline Phosphatase 198 Units/L (46-116) H 08/02/24 16:30 Troponin I High Sens 51.2 ng/L (4.0-60.0) 08/02/24 16:30 Total Protein 9.0 g/dL (6.4-8.2) H 08/02/24 16:30 Albumin 3.0 g/dL (3.4-5.0) L 08/02/24 16:30 Globulin 6.0 g/dL (2.5-4.5) H 08/02/24 16:30 Albumin/Globulin Ratio 0.5 Ratio (1.1-2.1) L 08/02/24 16:30 Review of Systems Constitutional: Sweats and Weakness Eyes: No Symptoms Reported ENT: No Symptoms Reported Respiratory: Shortness of Breath and SOB with Excertion Cardiovascular: Palpitations Gastrointestinal: Nausea and Vomiting; denies Diarrhea Genitourinary: No Symptoms Reported Musculoskeletal: Shoulder Pain and Arm Pain Skin: No Symptoms Reported Neurological: Weakness (GENERALIZED, WORSE TO LLE) and Numbness; denies Confusion Physical Exam Vital Signs: Vital Signs Temperature 98.3 F Pulse Rate 86 Pulse Rate 75 Pulse Rate 78 Pulse Rate 74 Respiratory Rate 20 Blood Pressure 139/63 Blood Pressure 162/72 O2 Sat by Pulse Oximetry 100 O2 Sat by Pulse Oximetry 100 O2 Sat by Pulse Oximetry 100 O2 Sat by Pulse Oximetry 100 Oriented: Normal Eyes: Normal Ear: Normal Nose: Normal Throat: Dry Respiratory: RLL Diminished and LLL Diminished Cardiovascular: negative Tachycardia or Edema Auscultation: Bowel Sounds: Normal Palpation: Other (MILD DIFFUSE DISTENTION) Skin: Decreased Turgur and Diaphoresis (MILD) Musculoskeletal: Sensory Deficit; negative Pulse Deficit Psychiatric: Anxiety Mood Description: Fearful and Anxious Affect: Anxious Speech Pattern: Clear and Appropriate Assessment/Plan (1) SOB (shortness of breath): Status: Acute Plan: ADMIT, SERIAL CE AND EKG D DIMER AND ROOM AIR ABG ON ADMISSION RESP SUPPLEMENTAL O2, IV NS AT KVO BP CONTROL, VERIFY HOME MEDICATION STOOL STUDIES, BID PPI THERAPY, PRN NAUSEA CONTROL CT HEAD, ABD SERIES AND CXR ON ADMISSION RESUME ELIQUIS (2) Acute gastroenteritis: Status: Acute (3) Syncope, near: Status: Acute (4) HTN (hypertension): Status: Acute (5) HLD (hyperlipidemia): Status: Acute (6) A-fib: Status: Acute (7) History of CVA (cerebrovascular accident): Status: Acute (8) GERD (gastroesophageal reflux disease): Qualifiers: Esophagitis presence: esophagitis presence not specified Qualified Code(s): K21.9 - Gastro-esophageal reflux disease without esophagitis Status: Chronic
[2024-08-02 19:52] LABS: BILIRUBIN,URINE NEGATIVE (NEGATIVE); BLOOD/HEMOGLOBIN,URINE NEGATIVE (NEGATIVE); GLUCOSE, URINE NEGATIVE (NEGATIVE); KETONES,URINE NEGATIVE (NEGATIVE); LEUKOCYTE ESTERASE ,URINE NEGATIVE (NEGATIVE); NITRITES,URINE NEGATIVE (NEGATIVE); PROTEIN,URINE 1+ (NEGATIVE); UROBILINOGEN,URINE 1+ (NORMAL)
[2024-08-02 20:11] LABS: APPEARANCE,URINE SLIGHTLY HAZY (CLEAR); BACTERIA,URINE NEGATIVE /HPF (NEGATIVE); COLOR,URINE YELLOW (YELLOW); RBC,URINE NONE SEEN /HPF (0-3); SQUAMOUS EPITHELIAL CELL,UR MANY /HPF (NEGATIVE)
[2024-08-02] MEDS: PROTONIX INJ 40 MG VIAL IVP SCH (20:11)
[2024-08-02] MEDS: ELIQUIS PO SCH (20:11)
[2024-08-02] MEDS: ZOFRAN INJ 4 MG VIAL IVP PRN (20:14)
[2024-08-02] MEDS: VISTARIL PO PRN (20:14)
--- NOTE | 2024-08-02 22:18 | EKG ---
Test Reason : syncope Blood Pressure : */* mmHG Vent. Rate : 82 BPM Atrial Rate : 82 BPM P-R Int : 214 ms QRS Dur : 86 ms QT Int : 416 ms P-R-T Axes : 67 -42 -2 degrees QTc Int : 486 ms Sinus rhythm with 1st degree AV block Left axis deviation Moderate voltage criteria for LVH, may be normal variant ( R in aVL , Bryan product ) Nonspecific T wave abnormality Abnormal ECG When compared with ECG of 02-AUG-2024 16:20, (Unconfirmed) No significant change was found Confirmed by Boubacar Stanley MD ([id number]) on 08/03/2024 7:25:33 AM Referred By: Confirmed By: Boubacar Stanley MD
--- NOTE | 2024-08-02 22:30 | CT ---
EXAM: HEAD CT WITHOUT INTRAVENOUS CONTRAST HISTORY: Left-sided weakness. History of CVA. TECHNIQUE: Spiral axial CT images are obtained through the brain without the administration of intravenous contrast. Additional sagittal and coronal reformatted images are reconstructed. COMPARISON: Head CT dated April 01, 2023. FINDINGS: There are parenchymal lucencies within the white matter tracks of the centrum semiovale, consistent with chronic sequela of atherosclerotic microvascular ischemic disease. Severe atherosclerosis of the intracranial ICAs and vertebral arteries is seen. Consider follow-up MRA as clinically warranted. There is diffuse cerebral cortical atrophy. The centrum semiovale, basal ganglia, cerebellum, and brainstem are otherwise grossly unremarkable for a noncontrast CT scan. There is no acute intracranial hemorrhage, gross acute infarction, mass lesion, midline shift, or hydrocephalus seen. No extra-axial mass or abnormal fluid collection noted. The calvarium is intact. The partially imaged paranasal sinuses, middle ear cavities and mastoid air cells are clear. IMPRESSION: 1. Chronic microvascular ischemic disease, but no discernible acute infarction seen. Consider followup MRI with diffusion-weighted imaging to rule out occult acute infarction if clinically warranted. 2. Severe atherosclerosis of the intracranial ICAs and vertebral arteries is seen. Consider follow-up MRA as clinically warranted. 3. No skull fracture, intracranial hemorrhage, mass lesion, midline shift, or hydrocephalus seen. 4. No significant interval change seen. THIS IS AN ELECTRONICALLY VERIFIED FINAL REPORT 08/02/2024 10:25 PM - Electronically signed by Jacquie Olson MD
[2024-08-03] MEDS ORDERED: READI-CAT 2 ONE (02:47)
[2024-08-03] MEDS ORDERED: NS 100 ML IV 100 ML ONE (02:47)
[2024-08-03] MEDS ORDERED: OMNIPAQUE 350 mg/mL 100 mL BTL 100 ML ONE (02:47)
[2024-08-03] MEDS: NORCO 7.5/325 MG TAB PO PRN (03:08)
--- NOTE | 2024-08-03 04:55 | EKG ---
Test Reason : syncope Blood Pressure : */* mmHG Vent. Rate : 82 BPM Atrial Rate : 82 BPM P-R Int : 218 ms QRS Dur : 84 ms QT Int : 408 ms P-R-T Axes : 57 -50 -16 degrees QTc Int : 476 ms Sinus rhythm with 1st degree AV block Left anterior fascicular block Abnormal ECG When compared with ECG of 02-AUG-2024 22:18, (Unconfirmed) Nonspecific T wave abnormality no longer evident in Anterior leads Confirmed by Boubacar Stanley MD ([id number]) on 08/03/2024 7:25:00 AM Referred By: Confirmed By: Boubacar Stanley MD
[2024-08-03 05:04] LABS: BASOPHILS # (AUTO) 0.1 X10^3/uL (0.0-0.1); BASOPHILS % (AUTO) 1.1 % (0.2-1.0); EOSINOPHILS # (AUTO) 0.4 x10^3/uL (0.0-0.2); EOSINOPHILS % (AUTO) 3.2 % (0.9-2.9); HEMATOCRIT 38.9 % (36.0-47.0); HEMOGLOBIN 12.8 g/dL (12.0-16.0); LYMPHOCYTES # (AUTO) 3.6 X10^3/uL (1.3-2.9); LYMPHOCYTES % (AUTO) 30.2 % (21.0-51.0); MEAN CORPUSCULAR HEMOGLOBIN 32.9 pg (27.0-34.0); MEAN CORPUSCULAR VOLUME 99.6 fL (80.0-100.0); MEAN PLATELET VOLUME 7.8 fL (7.4-11.0); MONOCYTES # (AUTO) 0.8 x10^3/uL (0.3-0.8); NEUTROPHILS % (AUTO) 58.5 % (42.0-75.0); PLATELET COUNT 353 X10^3/uL (150.0-450.0); RED CELL DISTRIBUTION WIDTH 14.5 % (11.6-16.5)
[2024-08-03 05:13] LABS: ALANINE AMINOTRANSFERASE 35 Units/L (12-78); ALBUMIN 2.6 g/dL (3.4-5.0); ALKALINE PHOSPHATASE 175 Units/L (46-116); ASPARTATE AMINO TRANSFERASE 43 Units/L (15-37); BLOOD UREA NITROGEN 7 mg/dL (7-18); CALCIUM 8.4 mg/dL (8.5-10.1); CARBON DIOXIDE 23.6 mmol/L (21-32); CHLORIDE 101 mmol/L (98-107); COR CA(FOR HYPOALB) 9.5 mg/dL (8.5-10.1); CREATININE 1.01 mg/dL (0.55-1.02); GLUCOSE 103 mg/dL (65-99); MAGNESIUM 1.9 mg/dL (2.0-2.9); POTASSIUM 3.6 mmol/L (3.5-5.1); SODIUM 133 mmol/L (136-145); TOTAL PROTEIN 8.2 g/dL (6.4-8.2); eGFR NON BLACK RACES 57 (>60)
--- NOTE | 2024-08-03 07:10 | CT ---
EXAMINATION: ABDCMEN/PELVIS WITH CON HISTORY: ABDOMINAL PAIN N/V ; CVA, HTN, AFIB SX: LOOP RECORDER, CARDIAC ABLATION, ROMULO, HYST COMPARISON: Report MRI abdomen 03/31/2024, CT 03/17/2024 TECHNIQUE: Contiguous axial CT images of the abdomen and pelvis following intravenous contrast. Images reviewed in the axial imaging plane with reformatted sagittal and coronal images.The above CT scan was done with automated exposure control and the mA and kV was adjusted to obtain quality images according to patient size. FINDINGS: The liver measures 10 by 18 by 17 cm. There is a 1 cm cyst lateral segment left hepatic lobe. Other small lesion described in the right hepatic lobe on the report of the MRI of the abdomen is not demonstrated on CT. Cholecystectomy. No bile duct dilatation. Mild atrophy of the pancreas. No pancreatic duct dilatation. Spleen, adrenal glands appear intact. Kidneys normal size and position. Indeterminate 0.5 cm hypodensity posterior midpole right kidney. 2.4 mm nonobstructing stone posterior central midpole left kidney. Scattered arterial vascular calcifications of the aorta and branch vessels. Details of the GI tract are limited since oral contrast was not used. Small and large bowels normal caliber. Mild amount of bowel-gas and feces. No evidence of appendicitis. No ascites. Stomach is minimally distended with the oral contrast. Urinary bladder mildly distended with urine. Uterus is absent. Spondylosis. Linear shaped opacities in the pulmonary bases probable subsegmental atelectasis. IMPRESSION: Borderline hepatomegaly. 1 cm cyst lateral segment left hepatic lobe. The other small lesion described in the right hepatic lobe on the report of the MRI of the abdomen is not demonstrated on CT. Recommend further evaluation with an outpatient MRI of the abdomen to assess for stability between MRI exams. Cholecystectomy. 2.4 mm nonobstructing stone left kidney. Indeterminate 0.5 cm hypodensity posterior midpole right kidney. Recommend six- month follow-up. THIS IS AN ELECTRONICALLY VERIFIED FINAL REPORT 08/03/2024 7:07 AM - Electronically signed by Gala Richardson MD
[2024-08-03] MEDS ORDERED: CONSULT PHARMACY - POTASSIUM & MAGNESIUM XX SCH (08:00)
[2024-08-03] MEDS: COZAAR PO SCH (08:17)
[2024-08-03] MEDS: K-DUR TAB 20 MEQ PO SCH (08:17)
[2024-08-03] MEDS: MAG-OX TAB PO SCH (08:18)
[2024-08-03] MEDS: TOPROL XL PO SCH (08:18)
[2024-08-03] MEDS: EFFEXOR XR 75 MG CAP 24-HR PO SCH (08:18)
--- NOTE | 2024-08-03 08:29 | RAD ---
EXAM: CHEST, 1 VIEW HISTORY: syncope; COMPARISON: 5 TECHNIQUE: AP portable FINDINGS: Unremarkable cardiac silhouette. Loop recorder projects over the left midlung. No focal consolidation, pleural effusion, or pneumothorax. IMPRESSION: No acute cardiopulmonary findings. THIS IS AN ELECTRONICALLY VERIFIED FINAL REPORT 08/03/2024 8:26 AM - Electronically signed by Ayan Calles MD
--- NOTE | 2024-08-03 08:39 | RAD ---
EXAM: KUB HISTORY: abd pain, n/v; CVA, HTN, AFIB SX: LOOP RECORDER, CARDIAC ABLATION, ROMULO, HYST COMPARISON: None. TECHNIQUE: AP abdomen supine and upright FINDINGS: No abnormally distended bowel loops. No significant colonic stool burden. No free peritoneal air. Right upper quadrant metallic surgical clips. Chronic ossifications along the anterior aspect of the anterior superior iliac spines. IMPRESSION: Nonobstructive bowel gas pattern. No free peritoneal air. THIS IS AN ELECTRONICALLY VERIFIED FINAL REPORT 08/03/2024 8:36 AM - Electronically signed by Ayan Calles MD
[2024-08-03] MEDS: FLAGYL TAB 500 MG PO SCH (09:00)
[2024-08-03] MEDS ORDERED: OMNIPAQUE 350 mg/mL 50 mL BTL 50 ML ONE (10:59)
[2024-08-03] MEDS ORDERED: NS 500 ML IV 500 ML IV ONE (10:59)
--- NOTE | 2024-08-03 15:06 | CT ---
EXAM: FACIAL WITH CON HISTORY: PT STATES SHE FEELS PRESSURE ON LEFT CHEEK; COMPARISON: None TECHNIQUE: Multiple CT axial images of the facewere obtained with IV contrast. Coronal and sagittal images were reconstructed. Dose reduction techniques included Automated Exposure Control (AEC) and adjustment of mA and kV. FINDINGS: No fluid in the sinuses or mucosal thickening to suggest sinusitis. There is no mastoid effusion. The nasal cavity is patent with no mass or polyp. Nasal septum is generally in the midline. Left ramses bullosa is normal variant anatomy. Globes and orbital contents appear normal. Orbital samaniego are intact. Mandible, zygomatic arches, and nasal bones are intact. There are degenerative changes in the right temporomandibular joint. Superficial and deep fat planes of the face are intact. There is no inflammation. No fluid collection or abscess. No abnormal enhancement. IMPRESSION: 1. No acute finding THIS IS AN ELECTRONICALLY VERIFIED FINAL REPORT 08/03/2024 3:03 PM - Electronically signed by Emmanuel Sheridan MD
[2024-08-03 15:34] VITALS: TEMP 98.3
[2024-08-03 17:44] VITALS: BP 125/68; PULSE 88; RESP 20; O2SAT 95
--- NOTE | 2024-08-04 07:59 | MRI ---
EXAM: MAGNETIC RESONANCE ANGIOGRAPHY OF THE BRAIN WITH 3-D REFORMATIONS HISTORY: SEVERE ATHEROSCLEROSIS; COMPARISON: CT head dated 08/02/2024. TECHNIQUE: 3-D [id number] magnetic resonance angiography of the cerebral vasculature was performed with multiplanar reformatted maximum intensity projections. FINDINGS: There is preserved flow related enhancement in the anterior and posterior circulation without evidence of occlusion, flow-limiting stenosis, aneurysm, or malformation. IMPRESSION: MRA of the brain is within normal limits. THIS IS AN ELECTRONICALLY VERIFIED FINAL REPORT 08/04/2024 7:56 AM - Electronically signed by Ayan Calles MD
--- NOTE | 2024-08-04 08:00 | MRI ---
EXAM: MRA NECK WITHOUT CONTRAST HISTORY: SEVERE ATHEROSCLEROSIS; . COMPARISON: None. TECHNIQUE: Axial [id number] magnetic resonance angiography of the neck vasculature was performed without intravenous contrast. 3-D multiplanar reformatted maximum intensity projections were post processed. FINDINGS: Exam degraded by patient motion artifact. Aortic arch not imaged. Normal flow signal in the common and internal carotid arteries. Normal flow signal in the vertebral arteries. No definite high-grade stenosis or occlusion. IMPRESSION: Moderate motion degraded study. No definite high-grade stenosis or occlusion. If persistent concern for carotid or vertebral artery stenosis, consider carotid duplex or CTA neck for further evaluation. THIS IS AN ELECTRONICALLY VERIFIED FINAL REPORT 08/04/2024 7:57 AM - Electronically signed by Ayan Calles MD
== END 2024-08-03 18:25 | disposition home or self-care (01) ==
LOC: ICU
PROVIDERS: ADMIT Internal Medicine; ATTEND Internal Medicine
DX: R20.2 Paresthesia of skin; R42 Dizziness and giddiness; R10.84 Generalized abdominal pain; K52.89 Other specified noninfective gastroenteritis and colitis; I25.10 Atherosclerotic heart disease of native coronary artery without angina pectoris; K21.9 Gastro-esophageal reflux disease without esophagitis; R11.2 Nausea with vomiting, unspecified; E86.0 Dehydration; I69.854 Hemiplegia and hemiparesis following other cerebrovascular disease affecting left non-dominant side; F41.8 Other specified anxiety disorders; R06.02 Shortness of breath; R53.1 Weakness; R55 Syncope and collapse; I10 Essential (primary) hypertension; E83.42 Hypomagnesemia; K92.1 Melena; R94.31 Abnormal electrocardiogram [ECG] [EKG]; E78.5 Hyperlipidemia, unspecified; I48.91 Unspecified atrial fibrillation; Z79.01 Long term (current) use of anticoagulants